=== PATIENT | female | born 1965 | race Asian ===

== ENCOUNTER → 2017-12-05 11:21 | Outpatient (CLI) | payer OTHER, SELFPAY ==
--- NOTE | 2017-12-05 | DI.MRI.S_ITS ---
PROCEDURE: MR SHOULDER RT WO/W CON INDICATIONS: right shoulder pain and edema after fall TECHNIQUE: Noncontrast oblique coronal T1 spin echo and T2 fast spin echo with fat saturation, oblique sagittal T1 spin echo and T2 fast spin echo with fat saturation, axial T1 spin echo and T2 fast spin echo with fat saturation through the shoulder. Post-contrast oblique coronal, oblique sagittal, and axial T1 spin echo with fat saturation through the shoulder. COMPARISON: None. FINDINGS: Image quality: Excellent. Rotator cuff: Supraspinatus and infraspinatus tendinopathy, without discrete tear. Mild interstitial tearing seen in the footprint at the junction of the supraspinatus and infraspinatus tendons. Teres minor appears intact. Probable full thickness subscapularis tear is seen, with the tendon stump poorly visualized on image 12 series 11 at the glenohumeral joint line.. No definite rotator cuff muscle atrophy is seen. Bones and bursae: No suspicious bone marrow enhancement. No bone marrow contusions or fractures. Moderate acromioclavicular joint degeneration. The acromion demonstrates conventional anatomy, without an os acromiale. Large glenohumeral joint effusion is seen. Capsule and soft tissues: No suspicious soft tissue enhancement. There is presumed reactive synovitis. In the absence of intra-articular contrast, the labrum and glenohumeral ligaments appear intact. The long head of the biceps tendon is not well-seen and likely ruptured. The coracohumeral ligament appears intact although not well visualized. IMPRESSION: Full -thickness tear of the subscapularis tendon. Long head biceps tendon not well visualized and suspected to be ruptured. Please correlate exam findings. Large glenohumeral joint effusion and synovitis. Dictated by: Trey Alexander M.D. on 12/05/2017 at 12:13 Approved by: Trey Alexander M.D. on 12/05/2017 at 12:32
== END ==
PROVIDERS: Visit Provider Nurse Practitioner Family
DX: S43.491A Other sprain of right shoulder joint, initial encounter (principal); W19.XXXA Unspecified fall, initial encounter; M25.511 Pain in right shoulder
CPT/HCPCS: 73223; A9579

== ENCOUNTER 2018-01-21 10:12 | Day surgery (SDC) | payer OTHER, SELFPAY ==
[2018-01-14 13:48] VITALS: BMI 24.5
[2018-01-21] VITALS (8 sets, daily range): BP systolic 108–163; BP diastolic 73–106; PULSE 71–86; RESP 12–17; TEMP 36.3–36.6; O2SAT 94–100; BMI 24.5
[2018-01-21] MEDS: LACTATED RINGERS 1,000 ML 42 ML IV ×2 (10:35→13:26)
[2018-01-21] MEDS: APREPITANT 40 MG CAPSULE PO (11:15)
[2018-01-21] MEDS: fentaNYL 100 MCG/2 ML INJ 50 MCG IV (11:17)
[2018-01-21] MEDS: MIDAZOLAM 2 MG/2 ML VIAL IV (11:42)
--- NOTE | 2018-01-21 11:43 | SUR.PREOP ---
Versed given IV @ 1115, right after the fentanyl
--- NOTE | 2018-01-21 11:58 | PM.PREOP ---
Pre-operative Note Interval Note Pre-op Check: History & Physical Reviewed by Physician and Changes
[2018-01-21] MEDS: CEFAZOLIN 1 GM VIAL IV (12:15)
--- NOTE | 2018-01-21 12:44 | SUR.OPER ---
Beach chair on padded OR bed. Head on gel donut secured with tape over gauze. Non-operative arm secured <90 degrees abduction on padded arm board. Pillow under knees. Safety belt at thigh. Cloth tape over blanket over lower legs.
[2018-01-21] MEDS: BUPIVACAINE 0.5% W/ EPI (PF) 30 ML VIAL INJ (12:51)
--- NOTE | 2018-01-21 13:48 | P.OP_ITS ---
Operative Date/Time/Diagnoses Date of procedure: 01/21/18 Time of procedure: 13:15 Pre-op diagnosis: Acute rupture of the subscapularis tendon right shoulder Post-op diagnosis: same Procedure & Clinicians Procedure: Open right subscapularis repair Same procedure as scheduled: Yes Indications: The patient is an active 52-year-old woman who suffered a traumatic rupture to her right subscapularis tendon. This is a complete rupture confirmed on MRI as having approximately 1.5-2 cm of retraction. After discussion of the risks benefits and alternatives to open repair she has agreed to proceed. Risks discussed included but were not limited to: Failure to improve, stiffness, infection, nerve damage, deep venous thrombosis, pulmonary embolism, stroke, myocardial infarction permanent paralysis and . Surgeon: Sam West Electrical Maintenance Supervisor: Rd Gallardo Click Yes if Unassisted: No Anesthesia Type: General, Peripheral nerve block and Local Operative Notes Findings: Full-thickness retracted tear of the right subscapularis. There was also a biceps tendon rupture. This appeared to have scarred down into the soft tissue in the inter tubercular groove. Closure Type: primary Specimen(s): none sent Implants & Drains: Three Mitek Healix BR 5.5 mm suture anchors Applied: implant(s) Estimated Blood Loss (mL): 50 Blood products transfused: none Tourniquet time (min): 0 Procedure in detail: The patient was seen in the preoperative area where she identified her right shoulder as the operative site and this was marked with my initials. She received preoperative antibiotics and underwent the induction of an interscalene block for postoperative pain control. She was taken to the operating room and placed on the operating room table in a supine position where she underwent the induction of a general anesthetic. She was then repositioned in the ?beach chair? position. A small towel roll was placed between the scapulae to appropriately position the shoulder. The right arm was prepared from fingertips to the base of the neck with ChloraPrep in the usual fashion and draped through sterile drapes. An approximately 5 cm skin incision was created starting just below the coracoid process and extending overlying the deltopectoral interval. This interval was exploited to access the shoulder joint. The vein was taken medially with the pectoralis tendon. There was extensive scarring in the anterior shoulder as expected from the subscapularis rupture. The lateral border of the conjoined tendon was identified and the scarring dissected off the muscle to the lateral side of this. The intertubercular groove was palpated as a landmark in the scar tissue adherent to the lesser tuberosity was divided. I did palpate the axillary nerve at the under portion of the subscapularis and this was protected throughout the case. The edge of the subscapularis tendon was differentiated from the adherent scar by palpation. The traction suture was placed in the tendon and the scar tissue excised. The lesser tuberosity was denuded to bleeding bone using a rongeur. The 3 suture anchors were placed in the lesser tuberosity, equally spaced. Sutures from the anchors were placed with 1 of the 2 sutures from each anchor being placed as a mattress suture in the 2nd as a grasping suture on either side of the mattress suture. At the most superior suture the lateral limb of the grasping suture was placed through the supraspinatus as well. Sutures were sequentially tied repairing the subscapularis to its appropriate position. The lateral edge of the rotator interval was closed with a figure of 8 #2 Ortho cord suture. Once again the axillary nerve was palpated and found to be in good condition. Blunt dissection was used to release the adhesions behind the conjoined tendon to these subscapularis to allow mobility. I tested mobility on the table and there did not appear to be excessive tension on the repair. The wound was then extensively irrigated. The deltopectoral interval was reapproximated with a single suture of 3 0 Vicryl with care being taken not to ligate the vein. Subcutaneous layer was closed with interrupted 3 O Vicryl. The subcuticular closure was with a running 3 0 V lock suture. Steri-Strips were applied. 10 mL 0.5% Marcaine with epinephrine were injected into the subcutaneous tissues for postoperative pain control. An Aquacel Ag dressing was applied. The patient's arm was placed in a shoulder immobilizer and she was transferred to the recovery room having tolerated the procedure well. Complications: none Condition: stable Disposition: PACU Plan for aftercare: The patient will be maintained on a standard subscapularis repair protocol. She likely will be discharged this afternoon.
--- NOTE | 2018-01-21 14:01 | SUR.PHASEI ---
1355, patient sarina, oral airway removed. states arm feels heavy. denies pain or nausea, c/o dry throat. moving fingers with sensation present to all fingers.
--- NOTE | 2018-01-21 14:05 | SUR.PHASEI ---
taking ice chips, denies nausea
== END 2018-01-21 15:22 | disposition home or self-care (01) ==
LOC: OR 10:16 → AC 10:19 → OR 14:58
PROVIDERS: PCP Family Medicine; Visit Provider Orthopaedic Surgery
PROC: (CPT 23410; principal; 2018-01-21 12:15)
DX: M75.121 Complete rotator cuff tear or rupture of right shoulder, not specified as traumatic (principal); G89.18 Other acute postprocedural pain; I10 Essential (primary) hypertension
CPT/HCPCS: 23410; 64450; J0690; J2250; J3010; J8501

== ENCOUNTER → 2018-04-23 11:00 | Outpatient (CLI) | payer OTHER, SELFPAY | PROVIDERS: PCP Family Medicine | DX: Z23 Encounter for immunization (principal) | CPT/HCPCS: 90471; 90686 ==

== ENCOUNTER → 2018-07-17 12:17 | Outpatient (CLI) | payer OTHER, SELFPAY ==
--- NOTE | 2018-07-17 12:18 | DI.MRI.S_ITS ---
PROCEDURE: MR SHOULDER LT WO/W CON INDICATIONS: left shoulder pain x 6 months despite physical therapy TECHNIQUE: Noncontrast oblique coronal T1 spin echo and T2 fast spin echo with fat saturation, oblique sagittal T1 spin echo and T2 fast spin echo with fat saturation, axial T1 spin echo and T2 fast spin echo with fat saturation through the shoulder. Post-contrast oblique coronal, oblique sagittal, and axial T1 spin echo with fat saturation through the shoulder. COMPARISON: None. FINDINGS: Image quality: Excellent. Rotator cuff: Partial-thickness articular sided tear the infraspinatus tendon. Teres minor appears intact. There is also interstitial tearing at the junction of the supraspinatus and infraspinatus tendon seen on image 16 series 14. Partial-thickness bursal sided tear of the supraspinatus tendon. Near full thickness articular sided tear the subscapularis tendon with medial subluxation long head biceps tendon.Fatty infiltration and atrophy of the subscapularis muscle. There is mild fatty infiltration of the infraspinatus muscle. Bones and bursae: No suspicious bone marrow enhancement. No bone marrow contusions or fractures. Moderate acromioclavicular joint degeneration. The acromion demonstrates conventional anatomy, without an os acromiale. No pathologic subacromial-subdeltoid or subcoracoid bursal fluid is present. Capsule and soft tissues: No suspicious soft tissue enhancement. Ill-defined tear involving the posterosuperior labrum with intermediate intrasubstance signal change image 10 series 6. There is adjacent glenoid rim marrow signal changes and sclerosis. There is also prominent hypertrophy of the anteroinferior labrum which is predominantly low in signal suggesting chronic tear with scarring The coracohumeral ligament is not well seen and may be ruptured. IMPRESSION: Near full-thickness articular sided tear of the subscapularis tendon with associated medial subluxation of the long head biceps tendon. Long head biceps tendinopathy. Partial-thickness articular sided tear of the infraspinatus tendon. Partial thickness bursal sided tear of the supraspinatus tendon. Mild interstitial tearing at the junction of the supraspinatus and infraspinatus tendons. Atrophy of the subscapularis muscle and fatty infiltration of the infraspinatus. Low signal, probably chronic (potentially degenerative) tear of the posterosuperior and anteroinferior labrum. No suspicious enhancement. Dictated by: Trey Alexander M.D. on 07/17/2018 at 14:39 Approved by: Trey Alexander M.D. on 07/17/2018 at 14:58
== END ==
PROVIDERS: PCP Family Medicine; Visit Provider Family Medicine
DX: M25.512 Pain in left shoulder (principal); M75.112 Incomplete rotator cuff tear or rupture of left shoulder, not specified as traumatic; S43.492A Other sprain of left shoulder joint, initial encounter
CPT/HCPCS: 73223; A9579

== ENCOUNTER → 2019-05-03 11:37 | Outpatient (CLI) | payer OTHER, SELFPAY | PROVIDERS: PCP Family Medicine | DX: Z23 Encounter for immunization (principal) | CPT/HCPCS: 90471; 90686 ==

== ENCOUNTER → 2019-11-17 13:39 | Outpatient (CLI) | payer OTHER, SELFPAY ==
--- NOTE | 2019-11-17 | DI.MRI.S_ITS ---
PROCEDURE: MR LUMBAR SPINE WO CON INDICATIONS: LOW BACK PAIN TECHNIQUE: Noncontrast sagittal T1 spin echo and T2 fast echo, sagittal STIR, axial T1 and T2 fast spin echo through the lumbar spine. In cases with scoliosis, additional coronal T2 fast spin echo may be performed. COMPARISON: None. FINDINGS: Image quality: Excellent. Alignment and Curvature: Trace degenerative anterolisthesis of L4 on L5 measuring 4 mm. The other vertebral bodies are normally aligned. Bone Marrow: Marrow is of normal overall signal. There is discogenic signal abnormality subjacent to the L5-S1 disc. No acute vertebral body compression fractures. Spinal Cord: Conus medullaris terminates at the T12-L1 level. Visualized cord demonstrates normal signal and size. Paraspinous Soft Tissues: No paravertebral masses. T12-L1: No canal stenosis or foraminal stenosis. L1-L2: Normal appearance. L2-L3: Normal appearance. L3-L4: Mild disc bulge. Bilateral facet hypertrophy. Mild canal stenosis. No foraminal stenosis. L4-L5: Mild disc bulge. Prominent bilateral facet and ligament hypertrophy. Trace degenerative anterolisthesis of L4 on L5. Moderate to severe multifactorial canal stenosis. No significant right foraminal narrowing. Mild left foraminal narrowing. L5-S1: Severe chronic disc height loss. Moderate diffuse disc bulge. Mild to moderate canal stenosis. Bilateral facet hypertrophy. Mild right foraminal narrowing and mild to moderate left foraminal narrowing with mild flattening deformity of the exiting left L5 nerve root. IMPRESSION: 1. Multifactorial canal stenosis is moderate to severe L4-L5 and mild to moderate at L5-S1. 2. At L5-S1, there is mild to moderate left foraminal narrowing with mild flattening deformity of the exiting L5 nerve root. Dictated by: Tj Rangel M.D. on 11/17/2019 at 14:38 Approved by: Tj Rangel M.D. on 11/17/2019 at 14:43
== END ==
PROVIDERS: PCP Family Medicine; Referring Provider Registered Nurse Diabetes Educator; Visit Provider Registered Nurse Diabetes Educator
DX: M54.5 Low back pain (principal); M48.061 Spinal stenosis, lumbar region without neurogenic claudication; M48.07 Spinal stenosis, lumbosacral region
CPT/HCPCS: 72148